=== PATIENT | female | born 1955 | race Caucasian/White ===

== ENCOUNTER 2021-03-03 09:34 | Outpatient (CLI) | payer BC | END 2021-03-03 09:35 | disposition home or self-care (01) | LOC: CSHMAMMO 09:34 | PROVIDERS: ATTEND Obstetrics & Gynecology Obesity Medicine | DX: Z12.31 Encounter for screening mammogram for malignant neoplasm of breast (principal); Z13.820 Encounter for screening for osteoporosis; M85.89 Other specified disorders of bone density and structure, multiple sites | CPT/HCPCS: 77063; 77067; 77080 ==